=== PATIENT | female | born 1940 | race Asian ===

== ENCOUNTER → 2017-06-10 | Outpatient (CLI) | payer MEDICARE ==
[~2017-06-10] MED LIST: AMLO5 PO; CHLO25B; CHOL10002; FISH1000 PO; LOSA50 PO; Lopressor 50 mg50 MG GT; MINO2.5 PO; Percocet 5-3251 EACH PO; SIMV40 PO; SPIR50 PO
[2017-06-11 11:14] LABS: T. vaginalis (DNA Probe) Negative (NEGATIVE)
[2017-06-11 11:15] LABS: Candida species (DNA Probe) Negative (NEGATIVE); G. vaginalis (DNA Probe) Negative (NEGATIVE)
== END ==
LOC: LAB SHORT 10:45
PROVIDERS: Nurse Practitioner Family
DX: N76.0 Acute vaginitis (principal)
CPT/HCPCS: 87070; 87205; 87480; 87510; 87660

== ENCOUNTER → 2017-07-08 | Outpatient (CLI) | payer MEDICARE | END | disposition home or self-care (01) | LOC: PLD 07:47 → LAB SHORT 07:47 | DX: D17.39 Benign lipomatous neoplasm of skin and subcutaneous tissue of other sites (principal) | CPT/HCPCS: 88304 ==

== ENCOUNTER 2022-07-01 08:19 | Day surgery (SDC) | payer MEDICARE ==
[~2022-07-01] VITALS: Ht 154.9 cm; Wt 72.6 kg
--- NOTE | 2022-07-01 09:25 | NUR ---
07/01/22 0925 Silvina Hoyos THREE ATTEMPTS AT IV. FIRST ATTEMPT AT IV BY MA IN RIGHT AC MISSED. SECOND ATTEMPT BY RN IN LEFT HAND INFILTRATED. THIRD ATTEMPT AT IV BY RN IN LEFT WRIST SUCCESSFUL.
== END 2022-07-01 10:33 | disposition home or self-care (01) ==
LOC: ORSCSDS 08:19
PROVIDERS: Internal Medicine Gastroenterology
PROC: 0DJD8ZZ Inspection of Lower Intestinal Tract, Via Natural or Artificial Opening Endoscopic (ICD-10-PCS; principal; 2022-07-01 09:45)
DX: Z12.11 Encounter for screening for malignant neoplasm of colon (principal); Z86.010 Personal history of colon polyps; K57.30 Diverticulosis of large intestine without perforation or abscess without bleeding; Z87.891 Personal history of nicotine dependence; E66.9 Obesity, unspecified; Z68.31 Body mass index [BMI] 31.0-31.9, adult; Z79.899 Other long term (current) drug therapy
CPT/HCPCS: J2704; J7120